=== PATIENT | female | born 1930 | race Caucasian/White ===

== ENCOUNTER 2018-08-05 18:10 | Inpatient (IN) ==
[2018-08-05 19:19] LABS: Basophils % 0.3 % (0.0-0.8); Eosinophils # 0.1 10*3/uL (0.0-0.87); Eosinophils % 0.5 % (0.00-10.9); Hematocrit 40.1 VOL% (35.7-47.0); Hemoglobin 12.9 GM/DL (12.0-16.0); Immature Granulocytes % 0.4 %; Immature Granulocytes Absolute 0.06 #; Lymphocytes # 1.3 10*3/uL (1.4-4.0); Lymphocytes % 9.3 % (21.3-54.2); Mean Corpuscular HGB Conc 32.2 GM/DL (32-36); Mean Corpuscular Hemoglobin 32 PG (27-34); Mean Corpuscular Volume 98.8 FL (87-102); Mean Platelet Volume 10.7 FL (9.6-12.0); Monocytes # 1.1 10*3/uL (0.11-0.8); Monocytes % 8.3 % (1.7-12.7); Neutrophils # 10.9 10*3/uL (1.4-7.4); Neutrophils % 81.2 % (38.7-73.9); Platelet Count 163 T/CUMM (130-400); Red Blood Count 4.06 MC/CUMM (3.8-5.5); Red Cell Distribution Width 12.8 % (9.3-17.3); White Blood Count 13.5 T/CUMM (4-12)
[2018-08-05 19:44] LABS: Calcium 9.3 MG/DL (8.5-10.1); Osmolality,Calculated 282.4 MOS/KG (273-304); Potassium 3.8 MMOL/L (3.5-5.1)
[2018-08-05] MEDS ORDERED: DOCUSATE SODIUM 100 MG CAPSULE PO PRN (22:15)
[2018-08-05] MEDS ORDERED: ACETAMINOPHEN 325 MG TABLET PO PRN (22:15)
[2018-08-05] MEDS ORDERED: ONDANSETRON 4 MG/2 ML VIAL IV PRN (22:15)
[2018-08-05] MEDS: HEPARIN DRIP 25,000 UNITS/500 ML PREMIX IV SCH (23:02)
[2018-08-06 03:59] LABS: Basophils % 0.4 % (0.0-0.8); Eosinophils # 0.1 10*3/uL (0.0-0.87); Eosinophils % 1.3 % (0.00-10.9); Hematocrit 36.4 VOL% (35.7-47.0); Hemoglobin 11.7 GM/DL (12.0-16.0); Immature Granulocytes % 0.4 %; Immature Granulocytes Absolute 0.04 #; Lymphocytes # 1.7 10*3/uL (1.4-4.0); Lymphocytes % 15.7 % (21.3-54.2); Mean Corpuscular HGB Conc 32.1 GM/DL (32-36); Mean Corpuscular Hemoglobin 32 PG (27-34); Mean Corpuscular Volume 97.8 FL (87-102); Mean Platelet Volume 11.2 FL (9.6-12.0); Monocytes # 0.9 10*3/uL (0.11-0.8); Monocytes % 8.2 % (1.7-12.7); Neutrophils # 8.2 10*3/uL (1.4-7.4); Platelet Count 147 T/CUMM (130-400); Red Blood Count 3.72 MC/CUMM (3.8-5.5); Red Cell Distribution Width 12.8 % (9.3-17.3)
[2018-08-06 04:37] LABS: Calcium 8.8 MG/DL (8.5-10.1); Osmolality,Calculated 277.7 MOS/KG (273-304); Potassium 3.7 MMOL/L (3.5-5.1); Thyroid Stimulating Hormone 0.011 uIU/ml (0.358-3.74)
[2018-08-06] MEDS ORDERED: LEVOTHYROXINE 75 MCG TABLET PO SCH ×2 (07:00→09:00)
[2018-08-06] MEDS: FOLIC ACID 0.4 MG TABLET PO SCH (09:40)
[2018-08-06] MEDS: LEVOTHYROXINE 50 MCG TABLET PO SCH (09:40)
[2018-08-06] MEDS: CHOLECALCIFEROL 1,000 UNIT TABLET PO SCH (09:40)
[2018-08-06 15:42] LABS: Apearance,Urine CLOUDY (Clear); Bilirubin,Urine Negative (Negative); Blood, Urine Negative (Negative); Glucose,Urine (UA) Negative (Negative); Ketones,Urine 5 mg/dL (Negative); Mucus,Urine Moderate /LPF (Occasional); Nitrite,Urine Negative (Negative); Protein,Urine 100 MG/DL; RBC,Urine 17 /HPF (0-4); Squamous Epithelial Cell,Urine Occasional /HPF (0-10); Urine Specific Gravity > 1.060 (1.001-1.035); Urine Urobilinogen < 2.0 EU/DL (0.2-1.0); WBC,Urine 611 /HPF (0-6)
[2018-08-06 15:43] LABS: Urine Color Yellow (Yellow)
[2018-08-06] MEDS: ZALEPLON 5 MG CAPSULE PO PRN (22:32)
[2018-08-07] MEDS: HEPARIN DRIP 25,000 UNITS/500 ML PREMIX IV SCH (00:45)
[2018-08-07 04:53] LABS: Basophils % 0.4 % (0.0-0.8); Eosinophils # 0.1 10*3/uL (0.0-0.87); Eosinophils % 1.3 % (0.00-10.9); Hematocrit 35.9 VOL% (35.7-47.0); Hemoglobin 11.6 GM/DL (12.0-16.0); Immature Granulocytes % 0.4 %; Immature Granulocytes Absolute 0.04 #; Lymphocytes # 1.7 10*3/uL (1.4-4.0); Lymphocytes % 15.8 % (21.3-54.2); Mean Corpuscular HGB Conc 32.3 GM/DL (32-36); Mean Corpuscular Hemoglobin 31 PG (27-34); Mean Corpuscular Volume 97.3 FL (87-102); Mean Platelet Volume 11.7 FL (9.6-12.0); Monocytes # 0.9 10*3/uL (0.11-0.8); Monocytes % 7.7 % (1.7-12.7); Neutrophils # 8.2 10*3/uL (1.4-7.4); Neutrophils % 74.4 % (38.7-73.9); Platelet Count 160 T/CUMM (130-400); Red Blood Count 3.69 MC/CUMM (3.8-5.5); Red Cell Distribution Width 12.7 % (9.3-17.3)
[2018-08-07 05:11] LABS: Calcium 8.5 MG/DL (8.5-10.1); Potassium 3.7 MMOL/L (3.5-5.1)
[2018-08-07] MEDS: CHOLECALCIFEROL 1,000 UNIT TABLET PO SCH (09:36)
[2018-08-07] MEDS: FOLIC ACID 0.4 MG TABLET PO SCH (09:36)
[2018-08-07] MEDS: DOXYCYCLINE HYCLATE 50 MG CAPSULE PO SCH ×2 (11:20→22:15)
[2018-08-07] MEDS: ZALEPLON 5 MG CAPSULE PO PRN (23:38)
[2018-08-08] MEDS: HEPARIN DRIP 25,000 UNITS/500 ML PREMIX IV SCH ×2 (01:27→23:56)
[2018-08-08 04:32] LABS: Basophils % 0.3 % (0.0-0.8); Eosinophils # 0.1 10*3/uL (0.0-0.87); Eosinophils % 1.1 % (0.00-10.9); Hematocrit 34.3 VOL% (35.7-47.0); Hemoglobin 11.2 GM/DL (12.0-16.0); Immature Granulocytes % 1.1 %; Immature Granulocytes Absolute 0.11 #; Lymphocytes # 1.5 10*3/uL (1.4-4.0); Lymphocytes % 14.5 % (21.3-54.2); Mean Corpuscular HGB Conc 32.7 GM/DL (32-36); Mean Corpuscular Hemoglobin 32 PG (27-34); Mean Corpuscular Volume 97.2 FL (87-102); Mean Platelet Volume 12.2 FL (9.6-12.0); Monocytes % 9.5 % (1.7-12.7); Neutrophils # 7.4 10*3/uL (1.4-7.4); Neutrophils % 73.5 % (38.7-73.9); Platelet Count 178 T/CUMM (130-400); Red Blood Count 3.53 MC/CUMM (3.8-5.5); Red Cell Distribution Width 12.6 % (9.3-17.3)
[2018-08-08 05:03] LABS: Calcium 8.4 MG/DL (8.5-10.1); Osmolality,Calculated 275.7 MOS/KG (273-304); Potassium 3.6 MMOL/L (3.5-5.1)
[2018-08-08] MEDS: CHOLECALCIFEROL 1,000 UNIT TABLET PO SCH (09:49)
[2018-08-08] MEDS: DOXYCYCLINE HYCLATE 50 MG CAPSULE PO SCH ×2 (09:49→23:58)
[2018-08-08] MEDS: FOLIC ACID 0.4 MG TABLET PO SCH (09:49)
[2018-08-08 16:02] LABS: INR 0.9; PT Patient Result 10.3 SECS
[2018-08-08] MEDS: ZALEPLON 5 MG CAPSULE PO PRN (20:21)
[2018-08-09] MEDS: GALANTAMINE 4 MG TABLET PO SCH ×3 (00:01→20:59)
[2018-08-09 04:19] LABS: Basophils % 0.5 % (0.0-0.8); Eosinophils # 0.1 10*3/uL (0.0-0.87); Eosinophils % 1.7 % (0.00-10.9); Hemoglobin 10.7 GM/DL (12.0-16.0); Immature Granulocytes % 0.5 %; Immature Granulocytes Absolute 0.04 #; Lymphocytes # 1.6 10*3/uL (1.4-4.0); Lymphocytes % 21.7 % (21.3-54.2); Mean Corpuscular HGB Conc 31.5 GM/DL (32-36); Mean Corpuscular Hemoglobin 31 PG (27-34); Mean Corpuscular Volume 98.6 FL (87-102); Mean Platelet Volume 11.8 FL (9.6-12.0); Monocytes # 0.8 10*3/uL (0.11-0.8); Monocytes % 10.5 % (1.7-12.7); Neutrophils # 4.8 10*3/uL (1.4-7.4); Neutrophils % 65.1 % (38.7-73.9); Platelet Count 180 T/CUMM (130-400); Red Blood Count 3.45 MC/CUMM (3.8-5.5); Red Cell Distribution Width 12.8 % (9.3-17.3); White Blood Count 7.5 T/CUMM (4-12)
[2018-08-09 05:13] LABS: Folate 17.7 NG/ML (5.4-24.0); Vitamin B12 330 PG/ML (211-911)
[2018-08-09 05:41] LABS: Sedimentation Rate-Westergren 91 MM/HR (0-30)
[2018-08-09 09:27] LABS: Hemoglobin A1 (Alkaline) 98.1 % (96.5-98.5); Hemoglobin A2 (Alkaline) 1.9 % (1.5-3.5)
[2018-08-09] MEDS: FOLIC ACID 0.4 MG TABLET PO SCH (10:01)
[2018-08-09] MEDS: DOXYCYCLINE HYCLATE 50 MG CAPSULE PO SCH ×2 (10:01→20:59)
[2018-08-09] MEDS: CHOLECALCIFEROL 1,000 UNIT TABLET PO SCH (10:01)
[2018-08-09] MEDS: CYANOCOBALAMIN 500 MCG TABLET PO SCH (10:02)
[2018-08-09] MEDS: APIXABAN 5 MG TABLET PO SCH (18:54)
[2018-08-09] MEDS: ZALEPLON 5 MG CAPSULE PO PRN (20:59)
[2018-08-09] MEDS: risperiDONE 0.25 MG TABLET PO SCH (20:59)
[2018-08-10] MEDS: APIXABAN 5 MG TABLET PO SCH ×2 (06:05→19:13)
[2018-08-10] MEDS: LEVOTHYROXINE 50 MCG TABLET PO SCH (06:05)
[2018-08-10] MEDS: CHOLECALCIFEROL 1,000 UNIT TABLET PO SCH (08:46)
[2018-08-10] MEDS: CYANOCOBALAMIN 500 MCG TABLET PO SCH (08:46)
[2018-08-10] MEDS: DOXYCYCLINE HYCLATE 50 MG CAPSULE PO SCH ×2 (08:46→21:28)
[2018-08-10] MEDS: FOLIC ACID 0.4 MG TABLET PO SCH (08:46)
[2018-08-10] MEDS: risperiDONE 0.25 MG TABLET PO SCH (09:13)
[2018-08-10] MEDS: GALANTAMINE 4 MG TABLET PO SCH (09:14)
[2018-08-11] MEDS: LEVOTHYROXINE 50 MCG TABLET PO SCH (06:37)
[2018-08-11] MEDS: APIXABAN 5 MG TABLET PO SCH (06:37)
[2018-08-11] MEDS ORDERED: Alendronate Sodium 35 MG PO SCH (07:00)
[2018-08-11 08:06] VITALS: BP 127/56
[2018-08-11] MEDS: DOXYCYCLINE HYCLATE 50 MG CAPSULE PO SCH (09:26)
[2018-08-11] MEDS: CYANOCOBALAMIN 500 MCG TABLET PO SCH (09:26)
[2018-08-11] MEDS: FOLIC ACID 0.4 MG TABLET PO SCH (09:26)
[2018-08-11] MEDS: CHOLECALCIFEROL 1,000 UNIT TABLET PO SCH (09:26)
== END 2018-08-11 10:39 | disposition home health service (06) | DRG 299 ==
LOC: EDBD → EDUNIT# → N.ED 18:10 → N.EDINP 22:00 → N.TELEN 22:45
PROVIDERS: ADMIT Hospitalist; ATTEND Hospitalist